=== PATIENT | female | born 1960 | race Caucasian/White ===

== ENCOUNTER 2021-12-10 10:30 | Outpatient (RCR) | payer MEDICARE, MEDICAID, SELFPAY | END 2022-03-18 12:30 | disposition home or self-care (01) | PROVIDERS: PCP Family Medicine; Visit Provider Nurse Practitioner Family | DX: Z51.89 Encounter for other specified aftercare (principal) | CPT/HCPCS: 97110; 97140 ==

== ENCOUNTER 2022-08-06 13:29 | Emergency (ER) | payer MEDICARE, MEDICAID, SELFPAY ==
[2022-08-06] VITALS (13 sets, daily range): BP systolic 121–149; BP diastolic 57–81; PULSE 54–63; RESP 18; TEMP 36.6; O2SAT 94–99; BMI 39.4
--- NOTE | 2022-08-06 13:49 | ED_ITS ---
HPI - Headache General Time Seen by Provider: 13:49 Date Seen: 08/06/22 Chief Complaint: Headache/Migraine Stated Complaint: High BP Time Seen by Provider: 08/06/22 13:49 Source: patient and RN notes reviewed Mode of arrival: ambulatory Limitations: no limitations History of Present Illness HPI Narrative: Brooklynn is a 61-year-old female coming in at the request of the clinic when she measured systolic blood pressure of 1 70s with her home cuff at home. She called the clinic, they advised her to come to the ER. She was at the neurologist earlier today, has chronic headache issues, chronic neck and back issues. She also goes to Pain Clinic. The neurologist this morning told her she should be monitoring her blood pressure. She did state to him that he could take her blood pressure there but the blood pressure was not obtained at the clinic. This is per patient report. She thus went home and got out of blood pressure cuff she had at home and ended up with a reading of 170s. On arrival here her blood pressure is 1 20s over for 50s to 60s. She endorses daily migraine headaches. She was started on emgality which is a monthly injection. She states there was a lapse in treatment for few months. She states the neurologist today thought she might have occipital neuralgia as she had diminished pinprick sensation on the left scalp. She has had surgeries in her cervical spine and reportedly in her lumbar spine. She states the pain clinic is talking about nerve ablation I believe. She has increase photophobia today, notes when her headaches get really bad she does start vomiting. She will usually try to sleep. There is no acute change in her neurologic status from baseline. She has no fevers chills. She was originally coming in for her blood pressure but did tell me that she would want treatment for her headache. Reviewed with her that really in her workup for her headaches she is beyond our expertise in the ER, she has graduated to a specialist. We did talk about different medicines that we may use in the ER. I did bring up steroids, she does want to try that. She is diabetic but states she has an insulin pump and can increase her insulin needs if this should causes sugar spikes. Did also review Reglan and Benadryl which may help julius migraine headaches. As far as occipital neuralgia, things like injections Botox are potential considerations and are out of the realm of the ED. Related Data Allergies Allergy/AdvReac Type Severity Reaction Status Date / Time adhesive tape Allergy Verified 08/06/22 14:17 aspirin Allergy Verified 08/06/22 14:17 azithromycin Allergy Verified 08/06/22 14:17 bee venom protein (honey bee) Allergy Verified 08/06/22 14:17 cefuroxime Allergy Verified 08/06/22 14:17 doxycycline Allergy Verified 08/06/22 14:17 gadodiamide Allergy Verified 08/06/22 14:17 house dust Allergy Verified 08/06/22 14:17 Iodinated Contrast Media Allergy Verified 08/06/22 14:17 lamotrigine Allergy Verified 08/06/22 14:17 Latex, Natural Rubber Allergy Verified 08/06/22 14:17 mannitol [From Reclast] Allergy Verified 08/06/22 14:17 probenecid Allergy Verified 08/06/22 14:17 Sulfa (Sulfonamide Allergy Verified 08/06/22 14:17 Antibiotics) trimethoprim Allergy Verified 08/06/22 14:17 water for injection,sterile Allergy Verified 08/06/22 14:17 [From Reclast] zoledronic acid Allergy Verified 08/06/22 14:17 [From Reclast] Review of Systems Status of ROS: Reports: 6 or more systems reviewed and unremarkable except as noted in History and below [facility] Social History Smoking Status: Never smoker Do you use any of these nicotine containing products: None Second hand tobacco smoke exposure: Yes How often do you have a drink containing alcohol: never How often do you have six or more drinks on one occasion: Never AUDIT-C Alcohol total score: 0 Non-prescribed substance use: denies use service: No Exam Const: Vital Signs, click to edit/add: Vital Signs - 24 hr 08/06/22 13:48 08/06/22 13:50 Temperature 97.9 F Pulse Rate [Right Pulse Oximeter] 63 Respiratory Rate 18 Blood Pressure 121/57 L Blood Pressure [Ri ght Upper Arm] 128/65 Pulse Oximetry 97 Oxygen Delivery Me thod Room Air Documenting provider has reviewed patient's vital signs: yes Common normals: no apparent distress, oriented x3, no limitations, healthy appearing and alert General appearance: cooperative, comfortable, well kempt and well developed Nutritional appearance: overweight HENMT: Common normals: normocephalic, head/scalp atraumatic, hearing grossly normal bilaterally, external ears normal, TM's normal bilaterally, external nose normal and nasal mucous membranes and turbinates normal Head and scalp: normocephalic and atraumatic Nose: external nose normal and nasal mucous membranes and turbinates normal External ear: external ears normal Tympanic membrane: TM's normal bilaterally Mouth: lip normal Eye: Common normals: PERRL, EOMs intact bilaterally, conjunctivae normal and no scleral icterus Conjunctiva: conjunctiva(e) normal Pupil: PERRL Neck & C-Spine: Common normals: full ROM, no lymphadenopathy and supple Resp: Common normals: normal respiratory effort, no retractions, no use of accessory muscles and clear to auscultation bilaterally Auscultation: clear to auscultation bilaterally Cardio: Common normals: regular rate, regular rhythm, S1 normal heart sound, S2 normal heart sound, no gallops, no clicks and no murmurs Rate: regular rate Rhythm: regular rhythm Heart sounds: S1 normal and S2 normal Neuro: Andrea Coma Scale: document GCS findings Andrea coma scale eye opening: Spontaneous (4) Andrea coma scale verbal response: Orientated (5) Andrea coma scale motor response: Obey commands (6) Andrea coma scale total score: 15 Common normals: oriented x3, CN's II-XII intact bilaterally and moves all extremities Sensorium/orientation: alert Speech: speech normal Gait (neuro): normal gait Psych: Appearance: well kempt Course Course Hospital Course: Plan on trying 10 mg IV dexamethasone, 10 mg IV metoclopramide protocol with IV Benadryl. Give her 500 mL normal saline with this. Have reviewed with her that this may not treat all of her symptoms, certainly if there is occipital neuralgia, that may require more specific treatments. She would like to try this anyway. Reevaluation(s) Reevaluation #1: Patient is actually feeling better. Plan will be to discharge to home at this time. She will watch her sugars closely and adjust her insulin pump accordingly. Time: 15:53 Vital Signs Vital signs: Initial Vital Signs Blood Pressure 121/57 L 08/06/22 13:48 Blood Pressure Mean 78 08/06/22 13:48 Vital Signs Blood Pressure 121/57 L 08/06/22 13:48 Temperature 97.9 F 08/06/22 13:50 Pulse Rate 63 08/06/22 13:50 Respiratory Rate 18 08/06/22 13:50 Blood Pressure 128/65 08/06/22 13:50 Pulse Oximetry 97 08/06/22 13:50 Oxygen Delivery Method Room Air 08/06/22 13:50 Discharge Plan Discharge Clinical Impression: Migraine Patient Disposition: Home, Self-Care Condition: Stable Instructions: Migraine Headache (ED), Acute Headache (ED) Additional Instructions: Continue to work with Neurology as well as your pain clinic regarding your multitude of conditions. If you indeed have occipital neuralgia, ask their neurologist or pain clinic about possible injections they may be able to do. I do recommend follow-up with your primary care provider within the next week for recheck and overall review of your conditions. Your primary care provider nose you much better and may be able to suggest other medicines that you can use to manage your conditions. The IV dexamethasone is a steroid and may cause increasing sugars, please follow and treat accordingly with your insulin pump. Activity Level: Activity as Tolerated Discharge Diet: Diabetic Follow Up/Referrals: Shanta Wiley MD [Primary Care Provider] - Stand Alone Forms: [employer] Info Instructions
[2022-08-06] MEDS: 0.9 % SODIUM CHLORIDE 500 ML 500 ML IV (14:17)
[2022-08-06] MEDS: diphenhydrAMINE 50 MG/ML inj 25 MG IVP (14:21)
[2022-08-06] MEDS: dexAMETHasone 10 MG/ML inj IVP (14:23)
[2022-08-06] MEDS: METOCLOPRAMIDE HCL 10 MG in 0.9 % SODIUM CHLORIDE 100 ml 100 ML 306 MG IVPB (14:40)
== END 2022-08-06 16:21 | disposition home or self-care (01) ==
PROVIDERS: Emergency Provider Family Medicine; PCP Family Medicine
DX: G43.909 Migraine, unspecified, not intractable, without status migrainosus (principal)
CPT/HCPCS: 96365; 96375; 99283; 99284; J1100; J1200; J2765; J7120

== ENCOUNTER 2023-05-27 13:00 | Outpatient (RCR) | payer MEDICARE, MEDICAID, SELFPAY ==
--- NOTE | 2023-05-27 14:26 | PT.OPDNX ---
[facility] Daily Note [facility] Daily [facility] Start: 09/16/22 07:09 Freq: Status: Active Protocol: Document 05/27/23 11:58 CLK (Rec: 05/27/23 13:45 CLK [id number]) E-signed By Stephanie Gamez, PT PT OP Daily Progress Note Visit Information Note Type Daily Note Visit Number [id number] Insurance Information Recert Due Date 03/19/23 Insurance Name Medicare B,Medicaid Medical Diagnosis Cervico-Thoracic Radiculopathy Lumbar Radiculopathy Migraine ENRIQUEZ Treating Diagnosis Functional strength deficit CX and Lumbar radiculopathy with pain Migraine ENRIQUEZ pain Referring MD Dr Trixie Mattson / [facility] / FAX: [phone] Subjective Subjective I had elbow surgery and carpel tunnel surgery, then I got Covid again - the 3rd time! Thankfully it was a mild case. Overall I feel completely physically overwhelmed. Everything hurts. I have not been as active, so my LB/ Pelvis and hip has been feeling a bit better for the first time in a long time. Seeing for my stitches on my wrist tomorrow. Pain Comments 07/06 (was 6-11/05) Precautions Treatment Precautions/Contraindications Heart issues, Resp Issues, Multiple spinal fusions (C3-C6 and rodding full thoracic), Migraines, High Blood Pressure , Diabetes, Fibromyalgia, multiple allergies, etc Weight Bearing Status Full Weight Bearing Objective Patient Instructed in Risks/Benefits Yes Therapeutic Exercise Therapeutic Exercise Minutes (minutes) 7 Therapeutic Exercise: To Restore We completed gym tasks of: Functional Status client arrived 20 min late, we only did NuStep today. -NuStep X 5 min at level 5 -Leg Press 110# X 40 reps -cc seated trunk ROT with plate 2 X 20 reps varun -back ext 35# X 40 reps -knee ext plate 2 X 25 reps -SLS with small head turns. 3 trials varun -recumbent bike seat 4 X 5 min level 5 -balance on foam X 2 min EO/EC *re-initiation of HEP of: -rowing with GRB X 10 reps -shoulder alphabet wtih 1# weight, completed varun but individually -heel raises *prior HEP of: -sit back squat/hip un-hinge 2 sets of 8 reps -hip ABD with GTB at knees 3 sets of 10 reps -Hip EXT with GTB at knees 3 sets of 10 reps -biceps curl with green band X 10 reps bl -triceps push down with green band X 10 reps varun -HOR ABD with GTB X 10 reps Manual Therapy Techniques Manual Therapy Minutes (minutes) 20 Manual Therapy Techniques To promote circulation, pain reduction and increase ease of functional tasks and self cares, we completed: -prone position for moderate- pressure STM/MFR/TPR from occiput to T9 varun, post shoulders, UT/scalenes/ levator. More emphasis today on varun lumbar psps. No mobs as she has DDD and reports surgery is getting scheduled sooner than later. Treatment Minutes Timed Code Treatment Minutes 27 Total Treatment Time 27 Billing Units Manual Therapy Units 2 Assessment/Impression Assessment/Impression No assistive device today. She did have normal heel strike and toe push off roll through and symmetric WB. No difficulties getting on/off the equipment or plinth, no facial grimace observed. Pain at UB and shoulders 6/10. Again advised to resume prior HEP with attention to alignment and pace. Reports flare kup of ENRIQUEZ, may be related to medications with 2 surgeries. Hypertonicity remains at lumber psps and varun upper thoracic. Good shoulder AROM. Plan of Care Physical Therapy Goals In 4-6 visits, Brooklynn will be able to report: 1. UE use for average of 45 min without pain increase greater than 30% (light house work, self cares). MET 2. Reduced ENRIQUEZ pain from constant to 75% of the time. Partially MET 3. Drive up to 60 min (Dr carlos out of town) without UE/ ENRIQUEZ pain greater than 6/10 75% of the time. MET In 10-12 visits, Brooklynn will be able to report: 1. Lift/carry up to 20# a distance of 50 feet (groceries from car to apartment) without dropping items or increased pain greater than 30 %. MET 2. Overhead use of UE ( cleaning upper shelves, bathroom tile, cooking pots from shelfs, etc) without dropping items and for duration of up to 2 minutes 3. Cook (repetitive UE use) up to 60 min without pain greater than 5/10 75% of the time. 4. Walk with SE Cane up to 90 min without requiring use of WW or WC, pain no greater than 5/10 post activity. 5. Increased varun lockstitch pocket setter strngth from 18 and 24 psi to average of 40 varun 6. SLS increased from average of 2 seconds to 10 seconds Daily Plan of Care Continue per POC Daily Plan of Care Comments Progress with stability/gait and strength of all 4 extremities, emphasis on UE and trunk stability. Recertification Information Initial Certification Date 09/16/22 Recertification Start Date 05/27/23 Recertification Due Date 08/21/23 Reasons to Continue Skilled Therapy Her ablation at lumbar region was completed approximately a month ago. Eager to progress her gym tasks and work on core and trunk strength. She will require UE strength/lockstitch pocket setter strength s/p carpel tunnel surgery and elbow surgery. She cont to exhibit hypertonicity gross spinal - CX, thoracic and lumbar. Good CX AROM and Varun shoulder mobility though. Rehabilitation Potential Good Continued Plan of Care and Interventions 1X/Wk for 10 visits Provider Signature Shows Agreement With POC & Medical Necessity Physician Comment/Change Comment or Changes Physician NPI Number #
== END 2023-09-24 23:59 | disposition home or self-care (01) ==
PROVIDERS: PCP Family Medicine; Visit Provider Nurse Practitioner Family
DX: M54.13 Radiculopathy, cervicothoracic region (principal); Z51.89 Encounter for other specified aftercare
CPT/HCPCS: 97110; 97140; 97162

== ENCOUNTER 2023-11-11 06:10 | Day surgery (SDC) | payer MEDICARE, MEDICAID, SELFPAY ==
[2023-11-11] MEDS: LACTATED RINGERS 1000 ML 1,000 ML 100 ML IV (06:05)
--- NOTE | 2023-11-11 06:44 | SUR.PREOP ---
pt states she has never had an allergic reaction to a saline flush. also she has a pacemaker, a bladder stimulator, a BG monitor and an omnipod, and a pain pump
[2023-11-11 06:51] VITALS: BMI 36.7
[2023-11-11 06:54] VITALS: BP 145/74; PULSE 63; RESP 20; TEMP 37.1; O2SAT 95
[2023-11-11 07:00] LABS: Basophils Absolute Auto 0.04 K/uL (0.00-0.30); Basophils Percent Auto 0.4 % (0.0-3.0); Eosinophils Absolute Auto 0.07 K/uL (0.00-0.50); Eosinophils Percent Auto 0.7 % (0.0-7.0); Hematocrit 49.3 % (33.0-51.0); Hemoglobin* 16.9 gm/dL (12.0-16.0); Immature Granulocytes Abs Auto 0.01 K/uL (0.00-0.30); Immature Granulocytes Pct Auto 0.1 %; Lymphocytes Percent Auto 18.5 % (20-44); Mean Corpuscular HGB Conc 34 gm/dL (32-36); Mean Corpuscular Hemoglobin 29 pg (26-34); Mean Corpuscular Volume 85 fL (80-100); Monocytes Percent Auto 5.8 % (0.0-11.0); Neutrophils Percent Auto 74.5 % (42.0-72.0); Platelet Count* 114 K/uL (140-440); RDW Coefficient of Variation % 12.2 % (11.5-15.5); Red Blood Count 5.81 m/uL (4.00-5.20); White Blood Count* 9.39 K/uL (4.50-11.00)
--- NOTE | 2023-11-11 07:07 | SUR.PREOP ---
dilaudid in pain pump. sayz she has not delivered a bolus in over a week
[2023-11-11 07:08] LABS: Chloride* 97 mmol/L (96-114); Potassium* 3.1 mmol/L (3.6-5.1); Sodium* 137 mmol/L (135-149)
[2023-11-11 07:09] LABS: Slide Review Reflex No
[2023-11-11 07:10] LABS: Creatinine* 0.8 mg/dL (0.5-1.5); Est. Creatinine Clearance* 47.01; Estimated Glomerular Filt Rate 82 ml/min
[2023-11-11 07:11] LABS: Anion Gap 9 mEq/L (7-15); Blood Urea Nitrogen* 20 mg/dL (7-30); Calcium* 9.6 mg/dL (8.4-10.6); Carbon Dioxide* 31 mmol/L (20-32); Glucose* 193 mg/dL (60-115)
[2023-11-11] MEDS: SODIUM CHLORIDE 0.9 % (FLUSH) 10 ML SYRINGE IVF (07:11)
--- NOTE | 2023-11-11 07:18 | W.PM.H&PU_ITS ---
History & Physical Update History & Physical Update H&P Reviewed and patient assessed: The following changes are noted below H&P Updates: Moved to assisted living in [place] so many social changes. Has recurrent episodes of yeast vaginitis and is currently experiencing symptoms of increased vaginal discharge, discomfort. Will collect wet prep, yeast culture, may need to consider prophylaxis in the future.
--- NOTE | 2023-11-11 07:46 | W.PM.GYNPROC ---
Procedure Note Date of procedure: 11/11/23 Will [facility] bill your pro fee for this procedure?: Yes Pre-op diagnosis: Pelvic exam under anesthesia Post-op diagnosis: Pelvic exam under anesthesia Procedure: Pelvic exam under anesthesia, collection of wet prep, pap smear and HPV, yeast vaginal culture. Anesthesia: MAC Complications: None Surgeon: Darcie Collado MD Estimated blood loss (mL): 0 Pathology: specimen obtained, sent to pathology (Sent to lab/routine) Condition: stable Disposition: same day Findings: External genitalia appropriate for sex and age, erythema and thickening of skin of bilateral labia majora as in skin dermatitis, labia minora and introitus with evidence of atrophy, normal external urethral meatus, vagina with atrophy changes as well as cervix, no gross lesions or abnormal discharge. Bimanual exam: small retroverted uterus, otherwise difficult to assess due to patent's body habitus. Skin on the lower abdomen, on the fold between panniculus and lower abdomen with induration changes, erythema, chronic inflammation. Procedure Description: Patient was taken to the OR and MAC anesthesia was established w/o difficulty. Patient was then placed in the lithotomy position with Nilo type stirrups. Pelvic exam under anesthesia completed with findings as above. Sterile Jose open sided speculum was placed, with findings as above. Wet prep, yeast vaginal culture and pap smear collected and sent to lab. Will follow up on results. Procedure ended. Patient tolerated the procedure well. Instrument and sponge counts were correct x2. The patient was awakened from MAC anesthesia and taken to the recovery room in a stable condition. The patient will go home after recovering from anesthesia and meeting all the criteria for discharge. She was given instructions regarding follow-up visit [facility] in 2[facility]4 weeks or as needed.
[2023-11-11 07:50] VITALS: BP 125/68; PULSE 64; RESP 20; TEMP 36.5; O2SAT 96
[2023-11-11 08:00] VITALS: BP 122/64; PULSE 60; RESP 20; O2SAT 95
--- NOTE | 2023-11-11 08:01 | W.ANESCHARGE ---
Anesthesia Charges Start Date/Time Anesthesia Start Date: 11/11/23 Anesthesia Start Time: 07:23 Stop Date/Time Anesthesia Stop Date: 11/11/23 Anesthesia Stop Time: 07:52
[2023-11-11 08:08] LABS: Clue Cells No Clue Cells Seen (None Seen); Trichomonas No Trichomonas Seen (None Seen); Yeast Yeast Seen (None Seen)
[2023-11-11 08:15] VITALS: BP 113/64; PULSE 60; RESP 18; O2SAT 95
--- NOTE | 2023-11-11 08:16 | W.ANESCHARGE ---
Anesthesia Charges Start Date/Time Anesthesia Start Date: 11/11/23 Anesthesia Start Time: 07:23 Stop Date/Time Anesthesia Stop Date: 11/11/23 Anesthesia Stop Time: 07:52
[2023-11-11 08:30] VITALS: BP 127/70; PULSE 60; RESP 18; O2SAT 95
== END 2023-11-11 09:25 | disposition home or self-care (01) ==
LOC: OR 06:11
PROVIDERS: Obstetrics & Gynecology; PCP Family Medicine; Visit Provider Obstetrics & Gynecology
PROC: (CPT 57410; principal; 2023-11-11 07:15)
DX: Z01.419 Encounter for gynecological examination (general) (routine) without abnormal findings (principal); F43.10 Post-traumatic stress disorder, unspecified; F33.1 Major depressive disorder, recurrent, moderate; E11.69 Type 2 diabetes mellitus with other specified complication; L30.8 Other specified dermatitis
CPT/HCPCS: 57410; 00940; 36415; 80048; 82962; 85025; 87102; 87210; 87624; 88175; J2250; J2704; J7120